=== PATIENT | female | born 1950 | race Caucasian/White ===

== ENCOUNTER → 2017-02-26 | Outpatient (CLI) | payer MEDICARE, OTHER ==
[~2017-02-26] VITALS: Ht 170.2 cm; Wt 61.2 kg
== END ==
LOC: OPSV 13:47
DX: K51.90 Ulcerative colitis, unspecified, without complications (principal)
CPT/HCPCS: 96365; J3380

== ENCOUNTER → 2017-03-03 | Outpatient (CLI) | payer MEDICARE, OTHER | LOC: HEART 5 12:23 | DX: J41.0 Simple chronic bronchitis (principal) | CPT/HCPCS: 94060 ==

== ENCOUNTER → 2017-04-23 | Outpatient (CLI) | payer MEDICARE, OTHER ==
[~2017-04-23] VITALS: Ht 170.2 cm; Wt 61.2 kg
[2017-04-23 17:17] LABS: HEMOGLOBIN 11.5 gm/dl (12.3-15.3); WHITE BLOOD COUNT 9.4 K/UL (4.5-11.0)
== END ==
LOC: OPSV 15:58
PROVIDERS: Internal Medicine Gastroenterology; Internal Medicine Rheumatology
DX: Z51.81 Encounter for therapeutic drug level monitoring (principal); M07.60 Enteropathic arthropathies, unspecified site; M89.8X9 Other specified disorders of bone, unspecified site; K51.90 Ulcerative colitis, unspecified, without complications
CPT/HCPCS: 36415; 80053; 85007; 85027; 86140; 96365; J3380